=== PATIENT | female | born 1960 | race Caucasian/White ===

== ENCOUNTER → 2022-02-06 | Outpatient (CLI) | payer MEDICAID, MEDICARE, OTHER ==
--- NOTE | 2022-02-06 16:22 | KCIC ---
Bilateral digital screening 2-D and 3-D (digital breast tomosynthesis) mammogram: Reason for examination: Routine screening. Comparison: Mammogram from 09/20/2017. Interpretation was made with the benefit of CAD. FINDINGS: Breast density: Category B. There are scattered areas of fibroglandular density. No suspicious new breast mass, malignant appearing calcifications, or architectural distortion is see n. There is an unchanged partially calcified fibroadenoma in the 11:00 position of the left breast at middle depth. IMPRESSION: No evidence of malignancy. Assessment: BI-RADS 2. Benign findings. Recommendation: Routine screening mammograms. The patient will receive a letter with the results in the mail. Patient information will be entered i nto the mammography reminder system with a target recall date for the next mammogram. A reminder aurelio er will be generated. Electronically signed by: Shasha Garcia MD (02/06/2022 4:20 PM) [id number]
--- NOTE | 2022-02-07 10:51 | KCIC ---
EXAMINATION: Magnetic resonance imaging (MRI) of the cervical spine without contrast 02/06/2022 1:20 PM HISTORY: Cervical radiculopathy TECHNIQUE: Multiplanar multi-weighted MRI of the cervical spine was performed without intravenous con trast using the standard cervical spine protocol. Contrast information: None administered COMPARISON: None available. FINDINGS: Anterior cervical discectomy and fusion hardware is identified from C4 through C6 with ventral plate and screws. Sagittal alignment is intact. There is mild disc height loss at C6-C7 with disc desiccati on at C2-C3, C3-C4 and C6-C7. Vertebral bodies demonstrate normal signal intensity on all sequences. No acute fracture is identified; however, if trauma is suspected, a CT scan would be a more sensitiv e examination for fractures. The craniocervical junction is normal. The visualized portions of the skull base and the posterior fossa are normal. The spinal cord demonstrates normal signal intensity on all sequences. No soft tissue abnormality is identified. Normal signal voids are present in the vertebral arteries. C2-C3: There is a disc bulge asymmetric to the left. Mild facet arthropathy. Mild left uncovertebral joint disease. Mild left neuroforaminal stenosis. No spinal canal stenosis. C3-C4: There is a posterior disc osteophyte complex with right foraminal calcified disc protrusion. M ild to moderate right and mild left facet arthropathy. Moderate right uncovertebral joint disease. Se demetris right neuroforaminal stenosis. Mild left neural foraminal stenosis. No significant spinal canal stenosis. C4-C5: This level is fused. No residual spinal canal stenosis. C5-C6: This level is fused. No residual spinal canal stenosis. C6-C7: There is a posterior disc osteophyte complex. Mild to moderate facet arthropathy. Moderate unc overtebral joint disease. Severe left and moderate right neuroforaminal stenosis. Mild spinal canal s tenosis without deformity of the cord or cord signal abnormality. C7-T1: The disk is normal in configuration. There is no facet arthropathy. There is no uncovertebral joint disease. There is no neuroforaminal stenosis. There is no spinal canal stenosis. IMPRESSION: Mild to moderate degenerative changes of the cervical spine as described in detail above. Anterior ce rvical discectomy fusion hardware from C4 through C6 without hardware failure. Electronically signed by: Shabana Kendrick MD (02/07/2022 10:49 AM) [id number]
== END ==
LOC: KCIC MRI 12:54
PROVIDERS: ATTEND Family Medicine
DX: Z12.31 Encounter for screening mammogram for malignant neoplasm of breast (principal); M47.22 Other spondylosis with radiculopathy, cervical region; M48.02 Spinal stenosis, cervical region; M48.8X2 Other specified spondylopathies, cervical region; M50.31 Other cervical disc degeneration, high cervical region; M25.78 Osteophyte, vertebrae; Z98.1 Arthrodesis status
CPT/HCPCS: 72141; 77067